=== PATIENT | female | born 1950 | race American Indian/Alaskan Native ===

== ENCOUNTER 2017-02-25 16:05 | Emergency (ER) | payer OTHER ==
[~2017-02-25 16:05] MED LIST: ADRENALIN ONE; CALCIUM CHLORIDE IV ONE; SODIUM BICARBONATE IV ONE
--- NOTE | 2017-02-25 16:31 | Emergency Department Report ---
ED CPR HPI - General Chief Complaint: Cardiac Arrest/CPR Stated Complaint: CARDIAC ARREST Time Seen by Provider: 02/25/17 16:24 Source: EMS Mode of arrival: Stretcher Limitations: Other - History of Present Illness Initial Comments: Patient is a 66-year-old female past medical history of coronary artery disease and triple bypass, RI. History is obtained by EMS. Was found down by family not breathing for about one hour. When EMS got there and they were doing chest compressions for a total of 20 minutes. History is limited due to patient's condition. Patient currently arrives in asystole. She was intubated by EMS. Complaint: found unresponsive Place: home Bystander CPR Performed: No Shock Advised: No Downtime Before ACLS Arrival (mins): 60 Initial Findings in the Field: unresponsive, no pulse ROSC in the Field: No Associated Injuries: No Treatments Prior to Arrival: intubation, BMV, chest compressions, epinephrine mgs # (patient was given 1 amp of epinephrine ) - Related Data Allergies Allergy/AdvReac Type Severity Reaction Status Date / Time No Known Allergies Allergy Unverified 08/04/13 15:34 ED Review of Systems ROS: Stated complaint: CARDIAC ARREST Other details as noted in HPI Comment: Unobtainable due to pts medical conditions (due to patient's acuity of condition) ED Past Medical Hx - Past Medical History Previous Medical History?: Yes Hx Hypertension: Yes Hx Heart Attack/AMI: Yes Additional medical history: cabg - Surgical History Additional Surgical History: unknown - Social History Smoking Status: Unknown if ever smoked ED Physical Exam - General Limitations: Other (physical exam Limited due to acuity of condition) - Head Head exam: Present: other (patient has ET tube in mouth ) - Respiratory Respiratory exam: Present: other (Patient is being bagged breath sounds bilaterally) - Cardiovascular Cardiovascular Exam: Present: other (no cardiac activity on ultrasound) ED Course - Reevaluation(s) Reevaluation #1: 02/25/17 17:01 Discussed with patient's family about patient being declared . Patient's family wants to see the patient and the patient's room. Patient's family has no questions at this time. ED Medical Decision Making - Medical Decision Making Chief medical diagnosis cardiac arrest Differential medical diagnosis: PE, RI, hyperkalemia We'll do CPR, will get IV epi and will give IV bicarbonate and IV calcium . Patient got 3 amps of epinephrine. One amp of bicarbonate and 1 amp calcium. Patient is in critical condition due to patient's history of being found down for an hour and CPR given 20 minutes before patient's arrival to the ED and no cardiac activity on point of care ultrasound CPR was ceased after 12 minutes Patient got CPR for a total of 12 minutes. Time of was called at 16:07 Critical care attestation.: If time is entered above; I have spent that time in minutes in the direct care of this critically ill patient, excluding procedure time. ED Disposition Clinical Impression: Cardiac arrest Disposition: DC-20 Is pt being admited?: No Does the pt Need Aspirin: No Condition: Undetermined Referrals: PRIMARY CARE, [Primary Care Provider] - 3-5 Days Time of Disposition: 18:08
== END 2017-02-25 20:05 ==
LOC: ED 16:05
DX: I46.9 Cardiac arrest, cause unspecified (principal); I10 Essential (primary) hypertension; I25.2 Old myocardial infarction; Z95.1 Presence of aortocoronary bypass graft
CPT/HCPCS: 92950; 99285; J0171